=== PATIENT | female | born 1945 | race Two or more races ===

== ENCOUNTER 2018-01-25 00:57 | Emergency (ER) | payer OTHER ==
[~2018-01-25] VITALS: Ht 152.4 cm; Wt 64.9 kg
[~2018-01-25 00:57] MED LIST: DICLOFENAC POTA50 MG PO; ORPH100T PO; PREVACID30 MG PO
[2018-01-25] MEDS ORDERED: GLIMEPIRIDE2 MG (01:41)
[2018-01-25] MEDS ORDERED: FENOGLIDE40 MG (01:41)
[2018-01-25] MEDS ORDERED: ALBUTEROL2.5 MG/3 M IH (05:39)
[2018-01-25] MEDS ORDERED: FLOVENT HFA10.6 GM IH (05:39)
== END 2018-01-25 05:44 | disposition home or self-care (01) ==
LOC: ER 00:57
DX: J45.998 Other asthma (principal)

== ENCOUNTER 2018-05-03 07:47 | Emergency (ER) | payer OTHER ==
[~2018-05-03] VITALS: Ht 160 cm; Wt 65.8 kg
[~2018-05-03 07:47] MED LIST changes: +ALBUTEROL2.5 MG/3 M IH; +FENOGLIDE40 MG; +FLOVENT HFA10.6 GM IH; +GLIMEPIRIDE2 MG
[2018-05-03] MEDS ORDERED: KETO10TA2 PO (09:03)
[2018-05-03] MEDS ORDERED: ORPHENADRINE C100 MG PO (09:03)
== END 2018-05-03 09:31 | disposition home or self-care (01) ==
LOC: ER 07:47
DX: M62.830 Muscle spasm of back (principal)

== ENCOUNTER 2018-05-10 08:16 | Emergency (ER) | payer OTHER ==
[~2018-05-10] VITALS: Ht 160 cm; Wt 65.8 kg
[~2018-05-10 08:16] MED LIST changes: +KETO10TA2 PO; +ORPHENADRINE C100 MG PO
== END 2018-05-10 14:24 | disposition home or self-care (01) ==
LOC: ER 08:16
DX: K59.09 Other constipation (principal); R10.13 Epigastric pain

== ENCOUNTER 2018-06-19 09:35 | Outpatient (CLI) | payer OTHER | END 2018-06-19 09:46 | disposition home or self-care (01) | LOC: LAB 09:35 | DX: R31.21 Asymptomatic microscopic hematuria (principal); R82.79 Other abnormal findings on microbiological examination of urine ==

== ENCOUNTER 2018-08-29 07:58 | Outpatient (CLI) | payer OTHER | END 2018-08-29 08:07 | disposition home or self-care (01) | LOC: TOM 07:58 | DX: K56.600 Partial intestinal obstruction, unspecified as to cause (principal); K63.5 Polyp of colon ==

== ENCOUNTER 2018-12-11 07:30 | Outpatient (CLI) | payer OTHER ==
[~2018-12-11] VITALS: Ht 160 cm; Wt 67.1 kg
[2018-12-11] MEDS ORDERED: ZANTAC300 MG PO (08:58)
[2018-12-11] MEDS ORDERED: FLONASE16 GM NASAL (08:59)
[2018-12-11] MEDS ORDERED: ZYRTEC10 MG PO (08:59)
== END 2018-12-11 07:45 | disposition home or self-care (01) ==
LOC: OFIC 805 07:30
DX: J37.0 Chronic laryngitis (principal); Q38.6 Other congenital malformations of mouth; J31.0 Chronic rhinitis; R43.9 Unspecified disturbances of smell and taste

== ENCOUNTER 2019-04-28 12:07 | Emergency (ER) | payer OTHER ==
[~2019-04-28] VITALS: Ht 160 cm; Wt 67.6 kg
[~2019-04-28 12:07] MED LIST changes: +FLONASE16 GM NASAL; +ZANTAC300 MG PO; +ZYRTEC10 MG PO
== END 2019-04-28 18:23 | disposition home or self-care (01) ==
LOC: ER 12:07
DX: J44.1 Chronic obstructive pulmonary disease with (acute) exacerbation (principal); R07.89 Other chest pain; R06.02 Shortness of breath

== ENCOUNTER 2019-04-30 21:17 | Emergency (ER) | payer OTHER ==
[~2019-04-30] VITALS: Ht 160 cm; Wt 67.6 kg
[2019-04-30] MEDS ORDERED: DELTASONE20 MG (21:41)
[2019-04-30] MEDS ORDERED: ATARAX50 MG (21:42)
== END 2019-04-30 23:23 | disposition home or self-care (01) ==
LOC: ER 21:17
DX: J43.8 Other emphysema (principal); R06.02 Shortness of breath

== ENCOUNTER 2019-05-02 05:38 | Emergency (ER) | payer OTHER ==
[~2019-05-02] VITALS: Ht 160 cm; Wt 67.6 kg
[~2019-05-02 05:38] MED LIST changes: +ATARAX50 MG; +DELTASONE20 MG
[2019-05-02] MEDS ORDERED: GLIMEPIRIDE2 MG (06:03)
[2019-05-02] MEDS ORDERED: VISTARIL50 MG ×2 (06:04→06:08)
== END 2019-05-02 13:45 | disposition home or self-care (01) ==
LOC: ER 05:38
DX: J44.0 Chronic obstructive pulmonary disease with (acute) lower respiratory infection (principal)

== ENCOUNTER 2019-05-26 17:46 | Emergency (ER) | payer OTHER ==
[~2019-05-26] VITALS: Ht 160 cm; Wt 67.1 kg
[~2019-05-26 17:46] MED LIST changes: +VISTARIL50 MG
[2019-05-26] MEDS ORDERED: [UNRECOGNIZED DRUG - OTHER] (20:06)
[2019-05-26] MEDS ORDERED: [UNRECOGNIZED DRUG - OTHER] (20:07)
[2019-05-26] MEDS ORDERED: SINGULEAR (20:07)
== END 2019-05-27 07:10 | disposition home or self-care (01) ==
LOC: ER 17:46
DX: K57.30 Diverticulosis of large intestine without perforation or abscess without bleeding (principal); R10.84 Generalized abdominal pain; R11.2 Nausea with vomiting, unspecified

== ENCOUNTER 2019-06-02 17:33 | Emergency (ER) | payer OTHER ==
[~2019-06-02] VITALS: Ht 160 cm; Wt 67.6 kg
[~2019-06-02 17:33] MED LIST changes: +SINGULEAR; +[UNRECOGNIZED DRUG - OTHER]; +[UNRECOGNIZED DRUG - OTHER]
[2019-06-02] MEDS ORDERED: FLAGYL500MG PO (18:05)
[2019-06-02] MEDS ORDERED: LEVSIN0.125 MG PO (18:05)
[2019-06-02] MEDS ORDERED: CIPRO500 MG PO (18:05)
[2019-06-02] MEDS ORDERED: SINGULAIR10 MG PO (18:06)
[2019-06-02] MEDS ORDERED: GLIMEPIRIDE2 MG PO (18:06)
== END 2019-06-02 21:41 | disposition home or self-care (01) ==
LOC: ER 17:33
DX: K29.60 Other gastritis without bleeding (principal); R19.5 Other fecal abnormalities

== ENCOUNTER 2019-07-02 13:55 | Outpatient (CLI) | payer OTHER ==
[~2019-07-02 13:55] MED LIST changes: +CIPRO500 MG PO; +FLAGYL500MG PO; +GLIMEPIRIDE2 MG PO; +LEVSIN0.125 MG PO; +SINGULAIR10 MG PO
== END 2019-07-02 14:03 | disposition home or self-care (01) ==
LOC: LAB 13:55
DX: L02.31 Cutaneous abscess of buttock (principal)

== ENCOUNTER 2019-07-27 02:02 | Emergency (ER) | payer OTHER ==
[~2019-07-27] VITALS: Ht 160 cm; Wt 67.6 kg
[2019-07-27] MEDS ORDERED: VISTARIL25 MG PO (03:49)
== END 2019-07-27 03:54 | disposition home or self-care (01) ==
LOC: ER 02:02
DX: R06.02 Shortness of breath (principal)

== ENCOUNTER 2019-08-05 02:46 | Emergency (ER) | payer OTHER ==
[~2019-08-05] VITALS: Ht 160 cm; Wt 65.8 kg
[~2019-08-05 02:46] MED LIST changes: +VISTARIL25 MG PO
[2019-08-05] MEDS ORDERED: UCERIS9 MG (03:03)
== END 2019-08-05 04:00 | disposition home or self-care (01) ==
LOC: ER 02:46
DX: R06.02 Shortness of breath (principal); J43.8 Other emphysema

== ENCOUNTER → 2019-08-19 | Emergency (ER) | payer OTHER ==
[~2019-08-19] VITALS: Ht 157.5 cm; Wt 70.3 kg
[~2019-08-19] MED LIST changes: +GABAPENTIN300 M2 PO; +UCERIS9 MG
== END | disposition home or self-care (01) ==
LOC: ER 21:23
DX: B34.9 Viral infection, unspecified (principal); F06.4 Anxiety disorder due to known physiological condition

== ENCOUNTER 2019-08-28 19:31 | Emergency (ER) | payer OTHER ==
[~2019-08-28] VITALS: Ht 160 cm; Wt 67.6 kg
[~2019-08-28 19:31] MED LIST changes: -GABAPENTIN300 M2 PO
[2019-08-28] MEDS ORDERED: GABAPENTIN300 M2 PO (20:20)
== END 2019-08-29 00:21 | disposition home or self-care (01) ==
LOC: ER 19:31
DX: K29.60 Other gastritis without bleeding (principal)

== ENCOUNTER 2019-11-24 06:32 | Emergency (ER) | payer OTHER ==
[~2019-11-24] VITALS: Ht 160 cm; Wt 67.6 kg
[~2019-11-24 06:32] MED LIST changes: +GABAPENTIN300 M2 PO
[2019-11-24] MEDS ORDERED: LIPOFEN50 MG (06:44)
[2019-11-24] MEDS ORDERED: OSEL75CA PO (10:02)
== END 2019-11-24 10:18 | disposition home or self-care (01) ==
LOC: ER 06:32
DX: J44.9 Chronic obstructive pulmonary disease, unspecified (principal); J11.1 Influenza due to unidentified influenza virus with other respiratory manifestations; R06.02 Shortness of breath; Z03.818 Encounter for observation for suspected exposure to other biological agents ruled out

== ENCOUNTER 2019-11-27 06:18 | Emergency (ER) | payer OTHER ==
[~2019-11-27] VITALS: Ht 160 cm; Wt 67.6 kg
[~2019-11-27 06:18] MED LIST changes: +LIPOFEN50 MG; +OSEL75CA PO
== END 2019-11-27 08:41 | disposition home or self-care (01) ==
LOC: ER 06:18
DX: J11.1 Influenza due to unidentified influenza virus with other respiratory manifestations (principal); R06.02 Shortness of breath

== ENCOUNTER 2019-12-01 13:51 | Emergency (ER) | payer OTHER ==
[~2019-12-01] VITALS: Ht 160 cm; Wt 67.6 kg
[2019-12-01] MEDS ORDERED: PROAIR HFA8.5 GM IH (14:00)
[2019-12-01] MEDS ORDERED: PROTONIX40 MG PO (14:00)
[2019-12-01] MEDS ORDERED: UCERIS9 MG PO (14:01)
[2019-12-01] MEDS ORDERED: MEDROL4 MG PO (15:56)
== END 2019-12-01 16:04 | disposition home or self-care (01) ==
LOC: ER 13:51
DX: B34.9 Viral infection, unspecified (principal)

== ENCOUNTER 2020-02-11 17:57 | Emergency (ER) | payer OTHER ==
[~2020-02-11] VITALS: Ht 160 cm; Wt 66.7 kg
[~2020-02-11 17:57] MED LIST changes: +MEDROL4 MG PO; +PROAIR HFA8.5 GM IH; +PROTONIX40 MG PO; +UCERIS9 MG PO
== END 2020-02-11 23:45 | disposition home or self-care (01) ==
LOC: ER 17:57
DX: K29.70 Gastritis, unspecified, without bleeding (principal)

== ENCOUNTER 2020-09-05 14:15 | Emergency (ER) | payer OTHER ==
[~2020-09-05] VITALS: Ht 160 cm; Wt 68.0 kg
== END 2020-09-05 22:04 | disposition home or self-care (01) ==
LOC: ER 14:15
DX: J45.998 Other asthma (principal); F41.1 Generalized anxiety disorder; Z03.818 Encounter for observation for suspected exposure to other biological agents ruled out

== ENCOUNTER 2021-02-05 02:51 | Emergency (ER) | payer OTHER ==
[~2021-02-05] VITALS: Ht 160 cm; Wt 72.6 kg
== END 2021-02-05 05:41 | disposition home or self-care (01) ==
LOC: ER 02:51
DX: J44.1 Chronic obstructive pulmonary disease with (acute) exacerbation (principal); R06.02 Shortness of breath

== ENCOUNTER 2021-03-13 04:20 | Emergency (ER) | payer OTHER ==
[~2021-03-13] VITALS: Ht 154.9 cm; Wt 69.4 kg
== END 2021-03-13 06:14 | disposition home or self-care (01) ==
LOC: ER 04:20
DX: K29.70 Gastritis, unspecified, without bleeding (principal); R10.13 Epigastric pain

== ENCOUNTER 2021-05-06 23:46 | Emergency (ER) | payer OTHER ==
[~2021-05-06] VITALS: Ht 160 cm; Wt 65.8 kg
[2021-05-07] MEDS ORDERED: ATORVASTATIN CA20 MG (00:04)
[2021-05-07] MEDS ORDERED: OSEL75CA PO (01:49)
[2021-05-07] MEDS ORDERED: ACETAMINOPHEN650 M2 PO (01:49)
== END 2021-05-07 03:50 | disposition home or self-care (01) ==
LOC: ER 23:46
DX: J10.1 Influenza due to other identified influenza virus with other respiratory manifestations (principal); B34.9 Viral infection, unspecified; R50.9 Fever, unspecified; R11.2 Nausea with vomiting, unspecified; Z03.818 Encounter for observation for suspected exposure to other biological agents ruled out

== ENCOUNTER 2021-05-20 17:20 | Emergency (ER) | payer OTHER ==
[~2021-05-20] VITALS: Ht 160 cm; Wt 67.1 kg
[~2021-05-20 17:20] MED LIST changes: +ACETAMINOPHEN650 M2 PO; +ATORVASTATIN CA20 MG
== END 2021-05-20 18:34 | disposition home or self-care (01) ==
LOC: ER 17:20
DX: R06.02 Shortness of breath (principal)

== ENCOUNTER 2022-05-25 22:01 | Emergency (ER) | payer OTHER ==
[~2022-05-25] VITALS: Ht 154.9 cm; Wt 72.6 kg
== END 2022-05-26 04:11 ==
LOC: ER 22:01
DX: J44.0 Chronic obstructive pulmonary disease with (acute) lower respiratory infection (principal); E11.9 Type 2 diabetes mellitus without complications; J98.9 Respiratory disorder, unspecified; J20.9 Acute bronchitis, unspecified

== ENCOUNTER 2022-07-05 14:42 | Outpatient (CLI) | payer OTHER | END 2022-07-05 14:46 | disposition home or self-care (01) | LOC: RAD 14:42 | PROVIDERS: ATTEND General Practice | DX: M17.12 Unilateral primary osteoarthritis, left knee (principal) ==

== ENCOUNTER 2022-11-14 06:00 | Day surgery (SDC) | payer OTHER ==
[~2022-11-14] VITALS: Ht 160 cm; Wt 72.6 kg
[~2022-11-14 06:00] MED LIST changes: +BUDESONIDE0.5 MG/2 M; +PROAIR RESPICL90 MCG IH
[2022-11-14] MEDS ORDERED: DUI500 PO (10:25)
[2022-11-14] MEDS ORDERED: ASA325 M1 PO (10:25)
[2022-11-14] MEDS ORDERED: TRAM1TAB98 PO (10:25)
== END 2022-11-14 13:55 | disposition home or self-care (01) ==
LOC: CIR.AMB 06:00
PROVIDERS: ATTEND Orthopaedic Surgery
DX: S83.242A Other tear of medial meniscus, current injury, left knee, initial encounter (principal); M65.9 Synovitis and tenosynovitis, unspecified; M94.262 Chondromalacia, left knee; M23.41 Loose body in knee, right knee

== ENCOUNTER 2023-01-17 19:22 | Emergency (ER) | payer OTHER ==
[~2023-01-17] VITALS: Ht 165.1 cm; Wt 63.0 kg
[~2023-01-17 19:22] MED LIST changes: +ASA325 M1 PO; +DUI500 PO; +TRAM1TAB98 PO
[2023-01-17] MEDS ORDERED: PEPCID AC20 MG PO (23:44)
[2023-01-17] MEDS ORDERED: ZOFRAN8 MG PO (23:44)
== END 2023-01-17 23:54 | disposition home or self-care (01) ==
LOC: ER 19:22
DX: K29.70 Gastritis, unspecified, without bleeding (principal); J44.9 Chronic obstructive pulmonary disease, unspecified; K21.9 Gastro-esophageal reflux disease without esophagitis; R11.10 Vomiting, unspecified

== ENCOUNTER 2023-02-27 06:44 | Outpatient (CLI) | payer OTHER ==
[~2023-02-27 06:44] MED LIST changes: +PEPCID AC20 MG PO; +ZOFRAN8 MG PO
== END 2023-02-27 06:47 | disposition home or self-care (01) ==
LOC: LAB 06:44
DX: R31.21 Asymptomatic microscopic hematuria (principal); N29 Other disorders of kidney and ureter in diseases classified elsewhere

== ENCOUNTER 2023-02-27 08:01 | Outpatient (CLI) | payer OTHER | END 2023-02-27 08:06 | disposition home or self-care (01) | LOC: SONOGRAMA 08:01 | PROVIDERS: ATTEND Urology | DX: N28.1 Cyst of kidney, acquired (principal) ==

== ENCOUNTER 2023-06-29 06:58 | Emergency (ER) | payer OTHER ==
[~2023-06-29] VITALS: Ht 160 cm; Wt 72.6 kg
[2023-06-29 09:00] LABS: ABG PH 7.418 (7.35-7.45); ABG PO2 103.4 mmHg (80-100); BASE EXCESS -1.2 mmol/l; BICARBONATE 22.7 mmol/l (23-25); Tco2 23.8 mmol/l; allen test SATISFACTORY; o2 21 %; puncture site RADIAL LEFT
[2023-06-29 09:17] LABS: HEMATOCRIT 39.3 % (36.0-45.00); HEMOGLOBIN 13.1 g/dL (12.0-15.00); MEAN CORPUSCULAR HEMOGLOBIN 28.4 pg (27.00-32.0); MEAN CORPUSCULAR HGB CONC 33.5 g/dl (32.0-36.0); PLATELET COUNT 230 K/uL (150-450); RED BLOOD COUNT 4.62 M/uL (4.00-6.00); RED CELL DISTRIBUTION WIDTH 15.3 % (11.5-14.5)
[2023-06-29] MEDS ORDERED: OSEL75CA PO (10:08)
[2023-06-29] MEDS ORDERED: TUSNEL LIQUID178 ML PO (10:08)
== END 2023-06-29 12:31 | disposition home or self-care (01) ==
LOC: ER 06:58
PROVIDERS: General Practice
DX: J10.1 Influenza due to other identified influenza virus with other respiratory manifestations (principal); R06.02 Shortness of breath; J43.8 Other emphysema; E11.9 Type 2 diabetes mellitus without complications; Z79.84 Long term (current) use of oral hypoglycemic drugs
CPT/HCPCS: 36415; 82803; 94640; 96365; 99285; J2930

== ENCOUNTER 2024-03-06 06:35 | Outpatient (CLI) | payer OTHER ==
[~2024-03-06 06:35] MED LIST changes: +TUSNEL LIQUID178 ML PO
[2024-03-06 07:38] LABS: URINE APPEARANCE Clear; URINE BILIRRUBIN Negative (NEGATIVE); URINE BLOOD Small; URINE COLOR Yellow; URINE GLUCOSE Negative (NEGATIVE); URINE KETONE Negative (NEGATIVE); URINE LEUKOCYTE Negative; URINE NITRATE Negative; URINE PROTEIN Negative (NEGATIVE); URINE UROBILINOGEN 0.2 E.U./dl
[2024-03-06 07:39] LABS: URINE BACTERIA 118.4 uL (0.0-1933); URINE EPITHELIAL CELLS 4.4 uL (0.0-38.8); URINE RBC 9.7 uL (0.0-20.8)
[2024-03-06 07:44] LABS: URINE WBC 1.3 uL (0.0-23.2)
== END 2024-03-06 06:36 | disposition home or self-care (01) ==
LOC: LAB 06:35
PROVIDERS: ATTEND Urology
DX: R31.21 Asymptomatic microscopic hematuria (principal)

== ENCOUNTER 2024-03-06 07:14 | Outpatient (CLI) | payer OTHER | END 2024-03-06 07:21 | disposition home or self-care (01) | LOC: SONOGRAMA 07:14 | PROVIDERS: ATTEND Urology | DX: N28.1 Cyst of kidney, acquired (principal) ==

== ENCOUNTER 2024-05-30 23:46 | Emergency (ER) | payer OTHER ==
[~2024-05-30] VITALS: Ht 160 cm; Wt 71.2 kg
[2024-05-31] MEDS ORDERED: METHYLPREDNISOLONE SOD SUCC 125 MG VIAL IV STA (04:57)
[2024-05-31] MEDS ORDERED: MAGNESIUM SULFATE IN WATER 4 GM/100 ML PIGGYBACK IV STA (04:57)
[2024-05-31] MEDS ORDERED: IPRATROPIUM/ALBUTEROL SULFATE 3 ML AMPUL.NEB IH STA (04:58)
== END 2024-05-31 06:31 | disposition home or self-care (01) ==
LOC: ER 23:48
DX: J45.901 Unspecified asthma with (acute) exacerbation (principal)
CPT/HCPCS: 94640; 96365; 99282; J3475; J3490

== ENCOUNTER 2024-08-29 11:43 | Outpatient (CLI) | payer OTHER | END 2024-08-29 11:48 | disposition home or self-care (01) | LOC: SONOGRAMA 11:43 | PROVIDERS: ATTEND Chiropractor | DX: M25.562 Pain in left knee (principal) ==

== ENCOUNTER 2025-01-08 07:12 | Outpatient (CLI) | payer OTHER | END 2025-01-08 07:24 | disposition home or self-care (01) | LOC: TOM 07:12 | PROVIDERS: ATTEND Internal Medicine Gastroenterology | DX: K57.30 Diverticulosis of large intestine without perforation or abscess without bleeding (principal); K56.690 Other partial intestinal obstruction; Z12.11 Encounter for screening for malignant neoplasm of colon ==